=== PATIENT | female | born 1975 | race Caucasian/White ===

== ENCOUNTER 2022-11-17 13:58 | Emergency (ER) | payer SELFPAY ==
[~2022-11-17] VITALS: Ht 162.6 cm; Wt 58.9 kg
[~2022-11-17 13:58] MED LIST: ALEVE220 MG OR; CEPHALEXIN500 MG PO; FLEXERIL PO; FLEXERIL5 MG PO; LORTAB 7.5 OR; MELOXICAM7.5 MG PO; PRILOSEC20 MG/CAP PO; PROTONIX40 MG PO; TYLENOL ARTH650 MG OR; ULTRAM50 M1 PO; ZOFRAN ODT4 MG PO
[2022-11-17] MEDS ORDERED: METOPROLOL TART50 MG PO (14:38)
[2022-11-17 15:02] LABS: BASO% 0.6 % (0-3); EOS% 1.1 % (0-8); IMMATURE GRANULOCYTES 0.2 % (0.0-5.0); LYMPH% 8.2 % (15-41); MEAN CORPUSCULAR HGB 30.9 pG CALC (26.0-32.0); MEAN CORPUSCULAR HGB CONC 31.1 g/dL CAL (32.0-36.0); MONO% 6.8 % (2-13); NEUT# 5.17 thou/uL (2.00-7.15); NEUT% 83.1 % (42-76); RED BLOOD COUNT 3.75 mill/uL (4.20-5.60); RED CELL DISTRI WIDTH 12.2 % (11.5-15.5)
[2022-11-17 15:03] LABS: HEMATOCRIT 37.3 % (37.0-47.0); HEMOGLOBIN 11.6 g/dl (12.0-16.0); MEAN CELL VOLUME 99.5 fL CALC (80.0-100.0)
[2022-11-17 15:04] LABS: ALBUMIN 4.1 g/dL (3.2-5.0); ANION GAP 11 (6-22 (CALC)); BUN 11 mg/dL (7-17); BUN/CREATININE RATIO 11 (12-20 (CALC)); CARBON DIOXIDE 26 mmol/l (22-30); CHLORIDE 106 mmol/l (95-108); CREATININE 1.1 mg/dL (0.5-1.0); GFR FOR AFR.AMER. > 60 ML/MIN (>=60 (CALC)); GFR OTHER RACES 54 ML/MIN (>=60 (CALC)); POTASSIUM 3.7 mmol/l (3.5-5.1); SGOT/AST 23 u/l (14-36); SODIUM 140 mmol/l (137-146); TOTAL PROTEIN 7.9 g/dL (6.3-8.2)
[2022-11-17 15:07] LABS: ALKALINE PHOSPHATASE 135 u/l (38-126); BILIRUBIN, TOTAL 0.4 mg/dL (0.02-1.3)
[2022-11-17 16:19] LABS: URINE BILIRUBIN - DIPSTICK Negative (NEGATIVE); URINE BLOOD DIPSTICK Trace-lysed (NEGATIVE); URINE GLUCOSE - DIPSTICK Negative (NEGATIVE); URINE KETONE Negative (NEGATIVE); URINE LEUK ESTERASE Trace (NEGATIVE); URINE NITRITE - DIPSTICK Negative (Negative); URINE PH 6.5 (4.5-8.0); URINE PROTEIN - DIPSTICK Negative (NEG-TRACE); URINE UROBILINOGEN - DIPSTICK 0.2 E.U./dL (0.2)
[2022-11-17 16:33] LABS: URINE COLOR Yellow
[2022-11-17] MEDS ORDERED: PREDNISONE10 MG PO (17:11)
[2022-11-17] MEDS ORDERED: LOPRESSOR50 M1 PO (17:11)
[2022-11-17] MEDS ORDERED: BACLOFEN10 MG PO (17:11)
[2022-11-17 17:31] VITALS: BP 119/78
== END 2022-11-17 17:32 | disposition home or self-care (01) | DRG 103 ==
LOC: ED 13:58
PROVIDERS: Nurse Practitioner
DX: R51.9 Headache, unspecified (principal); I10 Essential (primary) hypertension; F17.200 Nicotine dependence, unspecified, uncomplicated